=== PATIENT | female | born 1980 | race Caucasian/White ===

== ENCOUNTER → 2017-09-28 | Outpatient (CLI) | payer OTHER ==
[2015-06-11 22:19] VITALS: BP 123/85
--- NOTE | 2017-09-28 10:58 | US ---
HISTORY: Right upper quadrant pain Study: Right upper quadrant abdominal ultrasound Comparison: None Technique: Multiple images of the right upper quadrant were obtained. Findings: The liver measures approximately 16.7 cm. Increased echogenicity throughout the liver suggests fatty infiltration. Correlate clinically as other causes of hepatic disease may produce a similar appearanc e. The right kidney measures 10.1 x 4.8 x 5.4 cm. No sonographic evidence of hydronephrosis is identi fied. No shadowing echogenic stones are noted within the gallbladder. Gallbladder wall thickness is w ithin normal limits measuring 2.8 mm. The common bile duct is within normal limits in caliber measuri ng 3.6 mm. The pancreas was incompletely visualized. IMPRESSION: 1. Sonographic findings of hepatic steatosis. Reported By:
== END ==
LOC: RAD 08:13
PROVIDERS: ATTEND Nurse Practitioner Family
DX: R10.11 Right upper quadrant pain (principal); R11.0 Nausea
CPT/HCPCS: 76705

== ENCOUNTER → 2017-10-02 | Outpatient (CLI) | payer OTHER ==
[2015-06-11 22:19] VITALS: BP 123/85
--- NOTE | 2017-10-02 11:11 | NM ---
HISTORY: Right upper quadrant pain Study: Nuclear medicine HIDA scan with ejection fraction Comparison: Gallbladder ultrasound 09/28/2017 Technique: Multiple scintigraphic images of the abdomen were obtained the intravenous administration of 5.4 mCi of technetium labeled Choletec. Following distention of the gallbladder with radiotracer, the patient drank 8 oz of Ensure Plus. An estimated gallbladder ejection fraction was calculated based on the physiologic response of this kike stion. Findings: Homogeneous uptake of radiotracer is seen throughout the liver. This intrabiliary ductal system is o bserved normally. The common hepatic and common bile duct grossly appear unremarkable with normal bi liary-bowel transit. The gallbladder is observed to fill normally. After the ingestion of Ensure, a gallbladder ejection fraction of 19.6% (normal > 35%) is observed. IMPRESSION: 1. Normal hepatobiliary imaging scan. 2. Gallbladder hypokinesis. Reported By:
== END ==
LOC: RAD 08:19
PROVIDERS: ATTEND Nurse Practitioner Family
DX: R10.11 Right upper quadrant pain (principal); R11.0 Nausea; K82.8 Other specified diseases of gallbladder
CPT/HCPCS: 78227; A9537

== ENCOUNTER → 2017-10-06 | Outpatient (CLI) | payer OTHER ==
[2015-06-11 22:19] VITALS: BP 123/85
[2017-10-06 14:31] LABS: BILIRUBIN,URINE 1+ (NEGATIVE); BLOOD/HEMOGLOBIN,URINE 1+ (NEGATIVE); GLUCOSE, URINE NEGATIVE (NEGATIVE); KETONES,URINE 1+ (NEGATIVE); LEUKOCYTE ESTERASE ,URINE NEGATIVE (NEGATIVE); NITRITES,URINE NEGATIVE (NEGATIVE); PROTEIN,URINE 2+ (NEGATIVE); UROBILINOGEN,URINE 2+ (NORMAL)
[2017-10-06 14:47] LABS: APPEARANCE,URINE HAZY (CLEAR); COLOR,URINE YELLOW (YELLOW)
[2017-10-06 14:48] LABS: BACTERIA,URINE NEGATIVE /HPF (NEGATIVE); RBC,URINE 0-2 /HPF (NONE SEEN); SQUAMOUS EPITHELIAL CELL,UR MODERATE /HPF (NEGATIVE)
[2017-10-06 14:49] LABS: MUCUS,URINE MODERATE /HPF (NEGATIVE)
[2017-10-06 15:48] LABS: SERUM PREGNANCY TEST, QUAL NEGATIVE <10 mIU/mL
== END ==
LOC: LAB 14:08
PROVIDERS: ATTEND Surgery
DX: K81.9 Cholecystitis, unspecified (principal)
CPT/HCPCS: 36415; 81001; 84703

== ENCOUNTER → 2017-10-13 | Day surgery (SDC) | payer OTHER ==
[~2017-10-13] MED LIST: ANCEF 1 GM IV PREMIX* 1 GM/50 ML BAG IV ONE; BACTROBAN OINT ONE; BENADRYL INJ 50 MG VIAL IVP PRN; DECADRON INJ ONE; DIPRIVAN VIAL ONE; FENTANYL INJ 250 mcg ONE; LR 1000 ML IV 1,000 ML IV ONE; LTA KIT LIDOCAINE 4% ONE; NEOSTIGMINE INJ ONE; NORCO 5/325 MG TAB ONE; NORCURON INJ 10 MG VIAL ONE; NS IRRIGATION 1000 ML 1,000 ML IR ONE; PHENERGAN INJ 25 MG IVP PRN; QUELICIN (OR ANECTINE) ONE; REGLAN INJ 10 MG VIAL IVP PRN; ROBINUL ONE; SUPRANE IN ONE; VERSED ONE; XYLOCAINE 2 % (PLAIN) ONE; ZOFRAN INJ 4 MG VIAL IVP PRN; ZOFRAN INJ 4 MG VIAL ONE
[2017-10-13] MEDS: DILAUDID INJ IVP PRN ×3 (09:28→09:40)
[2017-10-13 11:02] VITALS: BP 154/88
== END | disposition home or self-care (01) | DRG 419 ==
LOC: SURG1 07:31
PROVIDERS: ATTEND Surgery
PROC: 0FT44ZZ Resection of Gallbladder, Percutaneous Endoscopic Approach (ICD-10-PCS; principal; 2017-10-13 08:30)
DX: K81.9 Cholecystitis, unspecified (principal); K82.8 Other specified diseases of gallbladder; K44.9 Diaphragmatic hernia without obstruction or gangrene
CPT/HCPCS: A4216; A4222; J0330; J0690; J1100; J2001; J2250; J2405; J2710; J3010; J3490; J7120